=== PATIENT | male | born 1990 | race African-American/Black ===

== ENCOUNTER 2025-01-25 13:37 | Outpatient (AMB) | payer MEDICARE, SELFPAY ==
--- NOTE | 2025-01-25 13:40 | MHC.AMNUTRGE ---
VS Expanded 01/25/25 13:42 01/25/25 14:48 Height 5 ft 7 in 5 ft 7 in Weight 107 lb 9.369 oz 108 lb BMI 16.8 16.9 Intake Visit Reasons: Underweight Nutrition Presentation Details: Pt presents for MNT for underweight Pt presents with his mother during this appt Pt has hx of epilepsy and reports it is under control Pt reports having lack of appetite at times B: 8-10 am: waffles and barrera, coffee with cream no sugar L: nuggets/fries, juice or pizza and juice (reports this is the main meal ) D: rice/beans/chicken or porkchop (eats half) drinks juices or sodas , coffee during the day , Reports currently choosing soft foods related to tooth ache/molar extracted Was having a protein shake but stopped buying d/t expense likes smoothies with fruit/water/yogurt Pt reports his wt was 115-120 lbs about 2 yrs ago. Reports many things have happened since, including moving from [place] to [place], different living circumstances . Report having enough money for food, receives snap denies constipation,diarrhea, vomiting Reports not on MVI smoke++ etoh: weekends K[facility]-[place] Equation Height: 5 ft 7 in Weight: 108 lb Resting Metabolic Rate: 1395.65 Calculated Activity Level: Sedentary Calories Needed to Maintain Weight: 1674.78 Diagnosis Nutrition problem #1: malnutrition and unintended weight loss As related to (etiology) #1: decreased appetite and diagnosis As evidenced by (sign/symptom) #1: low BMI (16.9 (02/05)) Assessment & Plan Assessment & Plan (1) Underweight (BMI < 18.5): Code(s): R63.6 - Underweight; Z68.1 - Body mass index [BMI] 19.9 or less, adult Category: Medical Plan: current wt: 49 kg (02/05 ) est kcal needs as per MSJ: 1700 + 1000 est protein needs as per 1-1.2 g/kg BW: 60 est fluid needs as per 30 ml/kg BW: 1500 Recommended fiber > 12 g /day and gradually increase up to 25-28 g /day or as tolerated Reviewed: Increasing calories from protein foods: discussed Protein sources of food and how to include in diet for healing, muscle mass, energy Nutrient dense hydration Patient Instructions: Have 3meals and 3 snack per day (balancing meals and snacks with protein) Have 1 protein shakes with breakfast meal (waffle and protein shake) and one protein shake with snack ( crackers with butter/peanut butter and protein shake ) Coding Level of Care Code Nutr Indiv Intake (73310) Diagnoses Underweight (BMI < 18.5) R63.6; Z68.1 Time Spent (min) 30
[2025-01-25 13:42] VITALS: BMI 16.8
[2025-01-25 14:48] VITALS: BMI 16.9
== END 2025-01-25 14:26 | disposition home or self-care (01) ==
LOC: HO.ENCR 13:38
PROVIDERS: PCP Internal Medicine; Visit Provider Dietitian, Registered
DX: R63.6 Underweight (principal); Z68.1 Body mass index [BMI] 19.9 or less, adult

== ENCOUNTER → 2025-01-25 13:37 | Outpatient (BNVA) | payer MEDICARE, SELFPAY | PROVIDERS: PCP Internal Medicine; Visit Provider Dietitian, Registered | DX: R63.6 Underweight (principal); Z68.1 Body mass index [BMI] 19.9 or less, adult | CPT/HCPCS: 97802 ==